=== PATIENT | male | born 1940 | race Two or more races ===

== ENCOUNTER 2024-08-14 22:14 | Emergency (ER) | payer MEDICARE ==
[~2024-08-14] VITALS: Ht 165.1 cm; Wt 132.0 kg
[2024-08-14 23:00] VITALS: TEMP 98.4
[2024-08-14 23:15] VITALS: PULSE 73; RESP 13; O2SAT 96
[2024-08-14 23:19] LABS: Basophils # (auto) 0 10 ^3/uL (0-0.2); Basophils % (auto) 0.2 % (0.0-2.0); Eosinophils # (auto) 0 10 ^3/uL (0-0.8); Hematocrit 39.9 % (41.0-53.0); Hemoglobin 13.3 g/dL (13.5-17.5); Lymphocytes # (auto) 0.6 10 ^3/uL (0.4-5.4); Lymphocytes % (auto) 8.8 % (10.0-50.0); Mean Corpuscular Hemoglobin 29.8 pg (28.0-32.0); Mean Corpuscular Hgb Conc. 33.3 g/dL (32.0-36.0); Mean Corpuscular Volume 89.7 fL (80.0-100.0); Monocytes # (auto) 0.1 10 ^3/uL (0-1.3); Neutrophils # (auto) 6.1 10 ^3/uL (1.6-8.6); Platelet Count (auto) 259 10^3/uL (140-450); Red Blood Cells 4.45 10^6/uL (4.5-5.90); Red Cell Distribution Width 15.2 % (11.8-14.3); White Blood Cell 6.7 10^3/uL (4.4-10.8)
[2024-08-14 23:22] LABS: Urine Bacteria None Seen /hpf (None Seen)
[2024-08-14 23:36] LABS: Alanine Aminotransferase 11 U/L (7-40); Albumin 4.2 g/dL (3.2-4.8); Alkaline Phosphatase 67 U/L (46-116); Anion Gap 8 (5-15); Aspartate Aminotransferase 19 U/L (13-40); BUN/Creatinine Ratio 10.2 (10.0-20.0); Bilirubin, Total 0.7 mg/dL (0.2-1.0); Blood Urea Nitrogen 28 mg/dL (9-23); Calcium 9.6 mg/dL (8.7-10.4); Carbon Dioxide 22 mmol/L (20-31); Chloride 105 mmol/L (98-107); Glucose 179 mg/dL (74-106); Sodium 135 mmol/L (136-145); Total Protein 6.9 g/dL (5.7-8.2)
[2024-08-14 23:46] LABS: Urine Blood 3+ /uL (Negative); Urine Clarity Ex.Turbid (Clear); Urine Color Red (Yellow); Urine Protein, UAD 3+ (Negative); Urine Specific Gravity 1.019 (1.001-1.035); Urine Urobilinogen Normal (Negative); Urine WBC 11 /hpf (0 - 3)
[2024-08-15] MEDS: LIDOCAINE 2% JELLY 11ml (GLYDO) ONE (00:18)
[2024-08-15] MEDS: HYDROcodone-ACET 5/325MG TAB PO ONE (00:24)
[2024-08-15] MEDS: LIDOCAINE 2% JELLY 11ml (GLYDO) UR ONE (00:24)
[2024-08-15 02:00] VITALS: BP 117/60; PULSE 68; RESP 22; O2SAT 96
== END 2024-08-15 02:55 | disposition home or self-care (01) ==
LOC: ER 22:14
DX: R31.9 Hematuria, unspecified (principal); Z46.82 Encounter for fitting and adjustment of non-vascular catheter
CPT/HCPCS: 36415; 51702; 80053; 81001; 85025